=== PATIENT | female | born 1980 | race Caucasian/White ===

== ENCOUNTER 2019-12-02 09:23 | Emergency (ER) | payer BC ==
[2019-12-02 09:32] VITALS: BP 128/63; PULSE 73; TEMP 97.5; BMI 30.7
--- NOTE | 2019-12-02 10:09 | PDOC ---
History of Present Illness - General Chief Complaint: RX Refill Stated Complaint: SENT BY DOC History Source: Patient Exam Limitations: No Limitations - History of Present Illness Initial Comments: 12/02/19 10:07 39 y/o female approximately 6 weeks presents the ED for RhoGam injection. Patient states miscarried on November 15 and was seen by her OB/ [facility] Sofie torres, who told patient to go to the ER since she is O-. Patient has no complaints of nausea, dizziness, fever or chills. Is this a multiple visit Asthma Patient?: No Timing/Duration: other Associated Symptoms: reports: denies symptoms Past History - Travel Traveled outside of the country in the last 30 days: No Close contact w/someone who was outside of country & ill: No - Past Medical History Allergies/Adverse Reactions: Allergies Allergy/AdvReac Type Severity Reaction Status Date / Time No Known Allergies Allergy Verified 12/02/19 09:32 - Psycho Social/Smoking Cessation Hx Smoking History: Never smoked Patient Lives Alone: No Lives with/in: spouse/SO Review of Systems - Review of Systems Able to Perform ROS?: No Is the patient limited Surinamese proficient: No Constitutional: No: Symptoms Reported HEENTM: No: Symptoms Reported Respiratory: No: Symptoms reported Cardiac (ROS): No: Symptoms Reported ABD/GI: No: Symptoms Reported : No: Symptoms Reported Musculoskeletal: No: Symptoms Reported Integumentary: No: Symptoms Reported Neurological: No: Symptoms reported Hematologic/Lymphatic: No: Symptoms Reported *Physical Exam - Vital Signs Last Vital Signs Temp Pulse Resp BP Pulse Ox 97.5 F L 73 18 128/63 98 12/02/19 09:31 12/02/19 09:31 12/02/19 09:31 12/02/19 09:31 12/02/19 09:31 - Physical Exam General Appearance: Yes: Nourished, Appropriately Dressed. No: Apparent Distress HEENT: negative: Pale Conjunctivae Respiratory/Chest: positive: Lungs Clear, Normal Breath Sounds. negative: Respiratory Distress, Accessory Muscle Use Cardiovascular: positive: Regular Rhythm, Regular Rate. negative: Murmur Extremity: positive: Normal Inspection Integumentary: positive: Normal Color, Warm, Moist Neurologic: positive: Motor Strength 5/5 (Ambulatory) Medical Decision Making - Medical Decision Making 12/02/19 10:11 Chief complaint: Status post miscarriage approximately 17 days ago here for RhoGam injection due to O- blood type. Exam: Vital signs stable no acute findings. Plan. Called woman to woman and will send copy of blood testing. called blood bank is requesting an additional type and screen. Patient will have blood drawn and then RhoGam will be ordered. 12/02/19 11:31 Laboratory Tests 12/02/19 10:10 Blood Type O NEGATIVE 12/02/19 12:02 Seconds type and screen sent. Patient receiving RhoGam. Will discharge. Discharge - Discharge Information Problems reviewed: Yes Clinical Impression/Diagnosis: Need for rhogam due to Rh negative mother Condition: Good Disposition: HOME - Admission No - Follow up/Referral Referrals: Aleyda Goetz PA [Primary Care Provider] - - Patient Discharge Instructions Patient Printed Discharge Instructions: DI for Miscarriage Additional Instructions: Please follow-up with [facility]. If you have any irritation pain or redness at the site worsening over the next 24 hours please return to the ED or follow-up with your primary care doctor to assess for localized reaction versus infection - Post Discharge Activity
[2019-12-02] MEDS ORDERED: RHO(D) IMMUNE GLOBULIN 1,500 UNIT DISP.SYRIN IM ONE (10:12)
== END 2019-12-02 12:20 | disposition home or self-care (01) ==
LOC: JER 09:23 → SUPCPDRO 09:23 → JER 12:20
PROC: 3E0234Z Introduction of Serum, Toxoid and Vaccine into Muscle, Percutaneous Approach (ICD-10-PCS; principal; 2019-12-02)
DX: Z29.13 Encounter for prophylactic Rho(D) immune globulin (principal)
CPT/HCPCS: 86850; 86900; 86901; 86999; 99283-25; J1561